=== PATIENT | male | born 1940 | race Caucasian/White ===

== ENCOUNTER 2018-01-02 11:40 | Emergency (ER) | payer MEDICARE, BC ==
[2018-01-02 11:56] VITALS: RESP 20; TEMP 97; O2SAT 97
[2018-01-02] MEDS ORDERED: BACITRACIN 500 U/GM OIN TOP ONE ×2 (12:22→12:23)
[2018-01-02 12:43] VITALS: BP 117/76; PULSE 56
== END 2018-01-02 12:37 | disposition home or self-care (01) | DRG 914 ==
LOC: ED 11:40
DX: S69.82XA Other specified injuries of left wrist, hand and finger(s), initial encounter (principal); Z79.01 Long term (current) use of anticoagulants; X58.XXXA Exposure to other specified factors, initial encounter
CPT/HCPCS: 99282; 99283; A6446; A9270-GY

== ENCOUNTER 2018-10-26 04:16 | Emergency (ER) | payer BC ==
[2018-10-26] MEDS ORDERED: ALBUTEROL/IPRATROPIUM 1 VIAL SOL INH ONE (04:22)
[2018-10-26] MEDS ORDERED: ALBUTEROL/IPRATROPIUM 1 VIAL SOL ONE (04:26)
[2018-10-26 04:42] VITALS: O2SAT 93
[2018-10-26 04:51] LABS: BASOPHILS % (AUTO) 0 % (0-3); EOSINOPHILS % (AUTO) 0 % (0-9); HEMATOCRIT 47 % (39-53); HEMOGLOBIN 15.9 gm/dl (13.5-17.7); LYMPHOCYTES % (AUTO) 5.7 % (10-50); MEAN CORPUSCULAR HEMOGLOBIN 30.2 pg (27.0-32.0); MEAN CORPUSCULAR HGB CONC 33.5 gm/dl (32.0-36.0); MEAN CORPUSCULAR VOLUME 90 fL (80-100); MONOCYTES % (AUTO) 10.2 % (0-12); NEUTROPHILS % (AUTO) 83.7 % (37-80)
[2018-10-26 04:59] VITALS: TEMP 97.4
[2018-10-26 05:13] LABS: ALBUMIN 3.6 gm/dl (3.4-5.0); ALKALINE PHOSPHATASE 72 IU/L (46-116); ALT 22 IU/L (14-63); AST 15 IU/L (15-37); BILIRUBIN,TOTAL 1.5 mg/dl (0.2-1.0); BLOOD UREA NITROGEN 16 mg/dl (7-18); CALCIUM 8.8 mg/dl (8.5-10.1); CARBON DIOXIDE 24.3 mEq/L (21-32); CHLORIDE 102 mMol/L (98-107); CREATININE 1.29 mg/dl (0.80-1.30); GLUCOSE 138 mg/dl (74-106); POTASSIUM 4.1 mMol/L (3.5-5.1); SODIUM 138 mMol/L (136-145); TOTAL PROTEIN 7.2 gm/dl (6.4-8.2); TROP I < 0.017 ng/ml (0.000-0.056)
[2018-10-26] MEDS ORDERED: SOLUMEDROL 125 MG/2 ML 125 MG/2 ML PDS IV ONE (05:13)
[2018-10-26 05:14] VITALS: RESP 20
[2018-10-26] MEDS ORDERED: CEFTRIAXONE 1 GM PDS 1 GM in SODIUM CHLORIDE 0.9% 50 ML 50 ML IV ONE (05:14)
[2018-10-26 05:15] LABS: INR 2.32 (0.86-1.12)
[2018-10-26] MEDS ORDERED: SOLUMEDROL 125 MG/2 ML 125 MG/2 ML PDS ONE (05:16)
[2018-10-26] MEDS ORDERED: CEFTRIAXONE 1 GM PDS ONE (05:16)
[2018-10-26 06:35] VITALS: BP 109/76; PULSE 88
== END 2018-10-26 06:15 | disposition home or self-care (01) | DRG 192 ==
LOC: ED 04:16
DX: J44.1 Chronic obstructive pulmonary disease with (acute) exacerbation (principal); R06.02 Shortness of breath; R05 Cough; R50.9 Fever, unspecified; J40 Bronchitis, not specified as acute or chronic
CPT/HCPCS: 71045; 80053; 84484; 85025; 85610; 93005; 96365; 96374; 99284; J0696; J2930